=== PATIENT | female | born 1960 | race Caucasian/White ===

== ENCOUNTER 2016-06-23 18:26 | Emergency (ER) | payer MEDICAID, OTHER ==
[2016-06-23 18:36] VITALS: BP 216/94; PULSE 82; RESP 20; TEMP 98.1
--- NOTE | 2016-06-23 21:11 | ED ---
Wound/Laceration HPI - General Chief Complaint: Fall Stated Complaint: Fall Time Seen by Provider: 06/23/16 18:50 Source: patient Mode of arrival: ambulatory Limitations: no limitations - History of Present Illness Initial Comments: Patient is a 55-year-old white female presenting to the emergency department with complaints of laceration to her right knee after she fell in the [employer] parking lot. Patient denies any other injuries. Patient states her last tetanus shot was within 5 years. Location: other (Right anteriorly) Extremity Location: Right: Knee (5 cm laceration to right anterior knee) Place: outdoors Patient Tetanus UTD: Yes Context: fall (Patient states she tripped over a rock) Associated Symptoms: pain - Related Data Previous Rx's Medication Instructions Recorded Cyclobenzaprine [Flexeril] 10 mg PO TID PRN #15 tab 02/01/15 Hydrocodone/Acetaminophen [[place] 1 each PO Q6HR PRN #20 tab 02/01/15 5-325] Ibuprofen [Motrin] 600 mg PO Q8HR PRN #30 tab 02/01/15 Cephalexin [Keflex] 500 mg PO Q6HR #28 cap 06/23/16 Allergies Allergy/AdvReac Type Severity Reaction Status Date / Time No Known Allergies Allergy Verified 06/23/16 18:36 Review of Systems ROS Statement: Those systems with pertinent positive or pertinent negative responses have been documented in the HPI. ROS Other: All systems not noted in ROS Statement are negative. Past Medical History Past Medical History: Hypertension Additional Past Medical History / Comment(s): current UTI History of Any Multi-Drug Resistant Organisms: None Reported Past Surgical History: Cholecystectomy Past Anesthesia/Blood Transfusion Reactions: No Reported Reaction Additional Past Anesthesia/Blood Transfusion Reaction / Comment(s): Took her a little long to come out of her previous anesthesia Past Psychological History: No Psychological Hx Reported Smoking Status: Current every day smoker Past Alcohol Use History: None Reported Past Drug Use History: None Reported General Exam - General Exam Comments Initial Comments: GENERAL: Pt awake and alert, well-appearing, well-nourished, and in no acute distress. HEAD: Atraumatic, normocephalic. EYES: Pupils equal, round, and reactive to light, extraocular movements intact, sclera anicteric, conjunctiva are normal. ENT: Oropharynx clear without exudates. Moist mucous membranes. NECK:Normal range of motion, supple without lymphadenopathy or JVD. LUNGS: Breath sounds clear to auscultation bilaterally. No wheezes, rales, or rhonchi. HEART: Heart S1, S2, no S3 or S4. Regular rate and rhythm. No murmurs, rubs or gallops. ABDOMEN: Soft, nontender, nondistended, normoactive bowel sounds. No guarding, no rebound. No masses or organomegaly appreciated. EXTREMITIES: Palpable peripheral pulses. No edema. No calf tenderness. NEUROLOGICAL: Pt oriented x 3. Cranial nerves II through XII grossly intact. Strength and sensation grossly intact. PSYCH: Normal mood, normal affect. SKIN: Warm, dry. 5 cm irregular laceration to right knee. Limitations: no limitations Course Vital Signs 06/23/16 18:34 Temperature 98.1 F Pulse Rate 82 Respiratory 20 Rate Blood Pressure 216/94 O2 Sat by Pulse 99 Oximetry Procedures - Laceration Laceration #1 Consent Obtained: verbal consent Time Out Performed: No Indication: laceration Site: lower extremity (Right knee) Description: irregular, contaminated Depth: simple, single layer Anesthetic Used: lidocaine 1% Anesthesia Technique: local infiltration Pre-repair: wound explored, irrigated extensively, deep structures intact, wound margins revised Type of Sutures: nylon Size of Sutures: 5-0 Number of Sutures: 9 Technique: simple, interrupted Patient Tolerated Procedure: well, no complications Medical Decision Making - Medical Decision Making Laceration to right knee. Laceration repaired. Patient tolerated procedure well. Patient offered x-ray of right knee but refused. Patient agreed with treatment plan. Discharge instructions and return parameters reviewed. Disposition Clinical Impression: Laceration of right knee without complication Disposition: HOME SELF-CARE Condition: Good Instructions: Care For Your Stitches (ED), Laceration (ED) Additional Instructions: Postop wound care: Keep wound dry and clean for 24 hours; if dressing accidentally becomes wet, chains addressing immediately. Gently clean the edges of the wound daily with a cotton swab saturated with peroxide to remove crust. Return immediately if signs of infection occur such as redness or red streaks progressing up and extremity, increasing pain, swelling, or fevers. Finish oral antibiotics as prescribed. Please return for suture removal in 8-10 days or sooner if complications. Please return to the emergency department if symptoms do not improve or get worse. Prescriptions: Cephalexin [Keflex] 500 mg PO Q6HR #28 cap Referrals: Homar,Emad, MD [Primary Care Provider] - 1-2 days Time of Disposition: 19:39
== END 2016-06-23 19:56 | disposition home or self-care (01) ==
LOC: EC 18:26
DX: S81.011A Laceration without foreign body, right knee, initial encounter (principal); F17.200 Nicotine dependence, unspecified, uncomplicated; W01.0XXA Fall on same level from slipping, tripping and stumbling without subsequent striking against object, initial encounter; Y92.22 Religious institution as the place of occurrence of the external cause
CPT/HCPCS: 12002; 99283

== ENCOUNTER → 2017-05-26 | Outpatient (CLI) | payer BC ==
--- NOTE | 2017-05-26 08:45 | CT ---
EXAMINATION TYPE: CT abdomen pelvis w con DATE OF EXAM: 05/26/2017 COMPARISON: NONE INDICATION: pt c/o back pain DLP: 1940.1 mGycm, Automated exposure control for dose reduction was used. CONTRAST: 100 mL of Omnipaque 300. Study performed without Oral Contrast TECHNIQUE: Axial images were obtained from above the diaphragm to the pubic rami in the axial plane a t 5 mm thick sections. Reconstructed images are reviewed on the computer in the coronal plane. FINDINGS: Limited CT sections are obtained the lung bases. The lung bases are clear. CT ABDOMEN: Liver: Normal Spleen: Normal Pancreas: Normal Adrenal glands: The adrenal glands are normal. Gallbladder: Surgically absent Kidneys: No masses are evident. No hydronephrosis is present. No cysts are present. Delayed images were obtained through the kidneys, which remain unremarkable. There appears to be a retrocaval right renal artery. Aorta: Vascular calcification is within the aorta. There is some fusiform prominence of the mid abdo jessa aorta with an AP diameter of 2.9 cm. No obvious dissection is evident. Inferior vena cava: Normal. CT PELVIS: Loops of bowel within the abdomen and pelvis are normal. There are loops of bowel which are incom pletely distended or lack oral contrast limiting their evaluation. Appendix: Normal as visualized. Urinary bladder: Normal. Genitourinary structures: Uterus is normal. Adnexal regions appear within normal limits. Osseous structures: No suspicious lytic or sclerotic lesions. Mild facet degenerative changes present . IMPRESSIONS: 1. Minimal fusiform prominence mid abdominal aorta with an AP diameter of 2.[address] abdomen pelvis otherwise appears unremarkable.
== END | disposition home or self-care (01) ==
LOC: RADCTMAIN 06:16
PROVIDERS: ATTEND Internal Medicine Geriatric Medicine
DX: I71.4 Abdominal aortic aneurysm, without rupture (principal)
CPT/HCPCS: 74177; Q9967

== ENCOUNTER → 2022-09-16 | Outpatient (CLI) | payer OTHER ==
--- NOTE | 2022-09-16 11:15 | US ---
EXAMINATION TYPE: US carotid duplex BILAT DATE OF EXAM: 09/16/2022 COMPARISON: NONE CLINICAL INDICATION: Female, 61 years old with history of I65.23 OCCLUSION AND STENOSIS OF BILATERAL CAROTID; Stenosis TECHNIQUE: Carotid duplex ultrasound examination. Indirect Doppler criteria was utilized. FINDINGS: EXAM MEASUREMENTS: RIGHT: Peak Systolic Velocity (PSV) cm/sec ----- Right CCA: 57.2 ----- Right ICA: 105.6 ----- Right ECA: 128.6 ICA/CCA ratio: 1.8 RIGHT: End Diastole cm/sec ----- Right CCA: 14.5 ----- Right ICA: 35.7 ----- Right ECA: 12.3 LEFT: Peak Systolic Velocity (PSV) cm/sec ----- Left CCA: 72.1 ----- Left ICA: 102.9 ----- Left ECA: 99.1 ICA/CCA ratio: 1.4 LEFT: End Diastole cm/sec ----- Left CCA: 20.6 ----- Left ICA: 29.2 ----- Left ECA: 12.4 VERTEBRALS (direction of flow): Right Vertebral: Antegrade Left Vertebral: Antegrade Rhythm: Normal INTERMEDIATE MANAGER NOTES: No significant stenosis seen IMPRESSION: Less than less than 50% stenosis of the bilateral carotid bifurcations. Criteria for Assigning % of Stenosis / Diameter reduction (Estimation based on the indirect measurements of the internal carotid artery velocities (ICA PSV). 1. Normal (no stenosis)=ICA PSV < 125 cm/s: ratio < 2.0: ICA EDV<40 cm/s. 2. Less than 50% stenosis=ICA PSV < 125 cm/s: ratio < 2.0: ICA EDV<40 cm/s. 3. 50 to 69% stenosis=ICA PSV of 125 to 230 cm/s: ration 2.0 ? 4.0: ICA EDV 40-100 cm/s. 4. Greater than 70% stenosis to near occlusion= ICA PSV > 230 cm/s: ratio > 4.0: ICA EDV > 100 cm/s. 5. Near occlusion= ICA PSV velocities may be low or undetectable: variable ratio and ICA EDV. 6. Total occlusion=unable to detect flow.
--- NOTE | 2022-09-16 11:29 | XR ---
EXAMINATION TYPE: XR lumbar spine 2 or 3V DATE OF EXAM: 09/16/2022 CLINICAL HISTORY: pain TECHNIQUE: Three views of the lumbar spine are submitted. COMPARISON: None. FINDINGS: There are 5 lumbar type vertebral bodies identified. The lumbar spine shows satisfactory alignment w ithout evidence of acute fracture or dislocation. Vertebral body heights are within normal limits. [id number] multilevel degenerative disc space narrowing greatest at L4-5 and L5-S1. Abdominal a ortic aneurysm with AP measurement of approximately 3.7 cm. IMPRESSION: 1.Abdominal aortic aneurysm with AP measurement of approximately 3.7 cm. 2. No acute fracture or dislocation is seen in the lumbar spine. ICD 10 NO FRACTURE, INITIAL EVALUATION
== END | disposition home or self-care (01) ==
LOC: RADUSWWP 10:34
PROVIDERS: ATTEND Internal Medicine
DX: I65.23 Occlusion and stenosis of bilateral carotid arteries (principal); M47.817 Spondylosis without myelopathy or radiculopathy, lumbosacral region; I71.40 Abdominal aortic aneurysm, without rupture, unspecified
CPT/HCPCS: 72100; 93880

== ENCOUNTER → 2022-10-28 | Outpatient (CLI) | payer OTHER ==
--- NOTE | 2022-10-29 10:15 | BD ---
EXAMINATION TYPE: Axial Bone Density DATE OF EXAM: 10/28/2022 CLINICAL HISTORY: 61 years old Female. ICD-10 CODE: [id number] OSTEO RIGHT HIP Height: 65 Weight: 310.8 FRAX RISK QUESTIONS: Alcohol (3 or more units per day): no Family History (Parent hip fracture): no Glucocorticoids (More than 3mos): no History of Fracture in Adulthood: no Secondary Osteoporosis: 1. Type 1 Diabetes: no 2. Hyperthyroidism: no 3. Menopause before 45: no 4. Malnutrition: no 5. Chronic liver disease: no Rheumatoid Arthritis: no Current Tobacco Use: no RISK FACTORS HISTORY OF: Hip Fracture (Right/Left): no Spine Fracture: no History of Wrist Fracture: no Surgery to Spine/Hip(right/left)/Wrist (right/left): no Family History of Osteoporosis: no Active: no Diet low in dairy products/other sources of calcium: no Postmenopausal woman: yes Take estrogen and/or progesterone medications: no Lost more than 2 inches in height since high school: no Frequent falls: no Poor Health: yes Hyperparathyroidism: no Adrenal Insufficiency: no MEDICATIONS: Prednisone or other steroids: no Thyroid Medications: no Osteoporosis Medications:no Additional Medications: Bp Meds, Cholesterol Meds, Multi Vit. Additional History: EXAM MEASUREMENTS: Bone mineral densitometry was performed using the Skycure System. Bone mineral density as measured about the Lumbar spine is: ----- L1-L4(G/cm2): 1.392 T Score Values are as follows: ----- L1: 0.0 ----- L2: 1.7 ----- L3: 1.8 ----- L4: 3.3 ----- L1-L4: 1.8 Z Score Values are as follows: ----- L1: 0.1 ----- L2: 1.8 ----- L3: 2.0 ----- L4: 3.5 ----- L1-L4: 1.9 Bone mineral density has: decreased -8.2 % since study of: 10/05/2013 Bone mineral density about the R hip (g/cm2): 1.161 Bone mineral density about the L hip (g/cm2): 1.191 T Score values are as follows: -----R Neck: 0.4 -----L Neck: 0.6 -----R Total: 1.2 -----L Total: 1.5 Z Score values are as follows: -----R Neck: 1.0 -----L Neck: 1.1 -----R Total: 1.4 -----L Total: 1.6 Bone mineral density has: decreased -1.8 % since study of: 10/05/2013 FRAX%s: The graph provided illustrates a 4.9% chance for a major osteoporotic fx and a 0.1% chance fo r the hips probability for fx in 10 years time. IMPRESSION: Normal (Values between +1 and -1 indicate normal bone mass). Consider repeating this study in 5 year s or sooner if there is some new clinical indication. NOTE: T-SCORE=SD OF THE YOUNG ADULT MEAN.
--- NOTE | 2022-10-30 07:19 | CT ---
EXAMINATION TYPE: CT angio thor/abd DATE OF EXAM: 10/28/2022 COMPARISON: None HISTORY: Abdominal aortic aneurysm CT DLP: 2836.4 mGycm Automated exposure control for dose reduction was used. Contrast: 100 mL Isovue-370 Technique: Axial images 5 mm thick sections. Reconstructed images in the coronal plane. 3-D reconstru cted images performed on a separate computer by the technologist are reviewed. FINDINGS: CT chest: There is a 0.3 cm nodule in the right apex. Short-term follow-up is recommended. Portion of the thyroid visualized is normal. Tracheobronchial tree as visualized is normal. No enlarg ed mediastinal or hilar lymph nodes are evident. Ascending thoracic aorta at the main pulmonary artery is 3.6 cm. Main pulmonary artery at the bifurca tion is 3.4 cm. Aorta appears to taper through its visualized course. CT ABDOMEN: There is moderate fatty infiltration through the liver. Gallbladder is surgically absent. Loops of bowel without oral contrast appear normal. The appendix is unremarkable. Kidneys appear nor mal without masses cysts or hydronephrosis. No renal stones are evident Pancreas is normal. Spleen is unremarkable. Adrenal glands are normal. Inferior vena cava is normal. Aorta: Vascular calcification is within the aorta. Thoracic aorta appears unremarkable. No dissection s are evident. There is mild diffuse fusiform prominence of the abdominal aorta with an AP dimension of 3.1 cm. This terminates at the bifurcation. The renal artery origins has some calcification withou t obvious stenosis. Superior mesenteric artery and celiac axis are normal. IMPRESSION: 1. MINIMAL FUSIFORM PROMINENCE OF THE MID ABDOMINAL AORTA WITH THE GREATEST AP DIMENSION OF 3.1 CM. 2. MODERATE FATTY INFILTRATION OF LIVER. 3. SMALL NODULE RIGHT APEX, FOLLOW-UP CT CHEST IN 6 MONTHS IS RECOMMENDED.
--- NOTE | 2022-11-05 12:24 | MM ---
Reason for Exam: Screening (asymptomatic). Last mammogram was performed 9 year(s) and 0 month(s) ago. Patient History: Menarche at age 12. Patient has no children. Postmenopausal. Risk Values: Katlin 5 year model risk: 1.6%. NCI Lifetime model risk: 7.9%. Prior Study Comparison: 10/05/2013 Bilateral Screening Mammogram, [facility]. Tissue Density: The breast tissue is almost entirely fat. Findings: Analyzed By CAD. There is no suspicious group of microcalcifications or new suspicious mass in either breast. Overall Assessment: Negative, BI-RAD 1 Management: Screening Mammogram of both breasts in [address] [facility] will attempt to contact patient to return for supplemental views and ultrasound if indicated. Patient should continue monthly self-breast exams. A clinical breast exam by your physician is recommended on an annual basis. This exam should not preclude additional follow-up of suspicious palpable abnormalities. Note on Katlin scores and lifetime risk: 1. A Katlin score greater than 3% is considered moderate risk. If this is the case, consider specialist referral to assess eligibility for a risk reducing agent. 2. If overall lifetime risk for the development of breast cancer is 20% or higher, the patient may qualify for future screening with alternating mammogram and breast MRI. Electronically signed and approved by: Sanchez Borja DO
== END | disposition home or self-care (01) ==
LOC: RADMAMWWP 07:57
PROVIDERS: ATTEND Internal Medicine
DX: Z12.31 Encounter for screening mammogram for malignant neoplasm of breast (principal); I71.40 Abdominal aortic aneurysm, without rupture, unspecified; M85.851 Other specified disorders of bone density and structure, right thigh; K76.0 Fatty (change of) liver, not elsewhere classified; R91.1 Solitary pulmonary nodule; Z78.0 Asymptomatic menopausal state
CPT/HCPCS: 77080; 77067; 71275; 74175; Q9967

== ENCOUNTER 2024-09-20 10:05 | Emergency (ER) | payer OTHER ==
--- NOTE | 2024-09-20 10:44 | ED ---
General Adult HPI - General Stated complaint: back pain Time Seen by Provider: 09/20/24 10:20 Source: patient, RN notes reviewed - History of Present Illness Initial comments: 63-year-old female presenting to emergency department for complaints of left lower back pain with radiation to her hip over the past 6 days that is progressing. Patient denies enticing injury or fall states that she woke up with the pain 1 day. She denies radiation of pain. States that the pain is significantly worse with movement. She denies loss of bladder or bowel control or saddle anesthesias. Denies hematuria, dysuria, increased urinary frequency or urgency. Denies fevers or chills. Has been taking Tylenol at home with minimal relief. - Related Data Previous Rx's Medication Instructions Recorded Cyclobenzaprine [Flexeril] 10 mg PO TID PRN #15 tab 02/01/15 Hydrocodone/Acetaminophen [[place] 1 each PO Q6HR PRN #20 tab 02/01/15 5-325] Ibuprofen [Motrin] 600 mg PO Q8HR PRN #30 tab 02/01/15 Cephalexin [Keflex] 500 mg PO Q6HR #28 cap 06/23/16 Penicillin V Potassium [Pen Vee K] 500 mg PO QID 10 Days #40 tablet 08/05/20 Indomethacin [Indocin] 50 mg PO TID #21 capsule 01/10/22 Cyclobenzaprine [Flexeril] 10 mg PO TID PRN #15 tab 09/20/24 Ibuprofen [Motrin] 800 mg PO Q8HR PRN #30 tab 09/20/24 Allergies Allergy/AdvReac Type Severity Reaction Status Date / Time No Known Allergies Allergy Verified 09/20/24 10:49 Review of Systems ROS Statement: Those systems with pertinent positive or pertinent negative responses have been documented in the HPI. ROS Other: All systems not noted in ROS Statement are negative. Past Medical History Past Medical History: Hypertension, No Reported History Additional Past Medical History / Comment(s): current UTI History of Any Multi-Drug Resistant Organisms: None Reported Past Surgical History: Cholecystectomy, No Surgical Hx Reported Past Anesthesia/Blood Transfusion Reactions: No Reported Reaction Additional Past Anesthesia/Blood Transfusion Reaction / Comment(s): Took her a little long to come out of her previous anesthesia Past Psychological History: No Psychological Hx Reported Smoking Status: Former smoker Past Alcohol Use History: None Reported Past Drug Use History: None Reported General Exam General appearance: alert, in no apparent distress Respiratory exam: Present: normal lung sounds bilaterally. Absent: respiratory distress, wheezes, rales, rhonchi, stridor Cardiovascular Exam: Present: regular rate, normal rhythm, normal heart sounds. Absent: systolic murmur, diastolic murmur, rubs, gallop, clicks GI/Abdominal exam: Present: soft, normal bowel sounds. Absent: distended, tenderness, guarding, rebound, rigid Left Hip exam: Present: full ROM, tenderness. Absent: swelling, ecchymosis, deformity Back exam: Present: full ROM, tenderness. Absent: CVA tenderness (R), CVA tenderness (L) Course Vital Signs 09/20/24 09/20/24 10:42 12:23 Temperature 97.9 F 98.0 F Pulse Rate 65 65 Respiratory 20 20 Rate Blood Pressure 199/87 180/89 O2 Sat by Pulse 96 96 Oximetry Medical Decision Making - Medical Decision Making Was pt. sent in by a medical professional or institution (GANESH Faust, GLASSINE MACHINE TENDER, urgent care, hospital, or senior living...) When possible be specific @ -No Did you speak to anyone other than the patient for history (EMS, parent, family, police, friend...)? What history was obtained from this source @ -No Did you review nursing and triage notes (agree or disagree)? Why? @ -I reviewed and agree with nursing and triage notes Were old charts reviewed (outside hosp., previous admission, EMS record, old EKG, old radiological studies, urgent care reports/EKG's, senior living records)? Report findings @ -No old charts were reviewed Differential Diagnosis (chest pain, altered mental status, abdominal pain women, abdominal pain men, vaginal bleeding, weakness, fever, dyspnea, syncope, headache, dizziness, GI bleed, back pain, seizure, CVA, palpatations, mental health, musculoskeletal)? @ -Differential Back Pain: Strain, zoster, cauda equina syndrome, epidural abscess, vertebral osteomyelitis, discitis, fracture, subluxation, disc herniation, DJD, spinal stenosis, dissection, AAA, pancreatitis, peptic ulcer disease, pyelonephritis, kidney stone, this is not meant to be an all-inclusive list. EKG interpreted by me (3pts min.). @ -None X-rays interpreted by me (1pt min.). @ - X-ray of the lumbar spine reveals a mild to moderate degenerative disc disease X-ray of the left hip and AP pelvis reveals mild osteoarthritis with no acute abnormality. CT interpreted by me (1pt min.). @ -None done U/S interpreted by me (1pt. min.). @ -None done What testing was considered but not performed or refused? (CT, X-rays, U/S, labs)? Why? @ -None What meds were considered but not given or refused? Why? @ -None Did you discuss the management of the patient with other professionals (professionals i.e. Dr., PA, GLASSINE MACHINE TENDER, lab, RT, psych nurse, social work specialist, take away attendant, teacher, commissioned security officer, manager rn case)? Give summary @ -No Was smoking cessation discussed for >3mins.? @ -No Was critical care preformed (if so, how long)? @ -No Were there social determinants of health that impacted care today? How? (Homelessness, low income, unemployed, alcoholism, drug addiction, transportation, low edu. Level, literacy, decrease access to med. care, care home, rehab)? @ -No Was there de-escalation of care discussed even if they declined (Discuss DNR or withdrawal of care, Hospice)? DNR status @ -No What co-morbidities impacted this encounter? (DM, HTN, Smoking, COPD, CAD, Cancer, CVA, ARF, Chemo, Hep., AIDS, mental health diagnosis, sleep apnea, morbid obesity)? @ -None Was patient admitted / discharged? Hospital course, mention meds given and route, prescriptions, significant lab abnormalities, going to OR and other pertinent info. @ -Discharge. 63 female presenting with nontraumatic back and hip pain. Overall patient is well-appearing in no signs distress. There are no overlying skin changes on examination. Patient's pain is reproducible on palpation and with range of motion likely musculoskeletal in nature. She is provided with Toradol and Lidoderm patch for pain relief. X-ray imaging of the left hip, AP pelvis, and lumbar spine no acute process. She is provided with outpatient prescription for Motrin 800s and muscle laxer instructed follow-up with primary care provider. Case discussed with attending Dr. Lomas Undiagnosed new problem with uncertain prognosis? @ -No Drug Therapy requiring intensive monitoring for toxicity (Heparin, Nitro, Insulin, Cardizem)? @ -No Were any procedures done? @ -No Diagnosis/symptom? @ -Lumbar back pain Acute, or Chronic, or Acute on Chronic? @ -Acute Uncomplicated (without systemic symptoms) or Complicated (systemic symptoms)? @ -Uncomplicated Side effects of treatment? @ -No Exacerbation, Progression, or Severe Exacerbation? @ -No Poses a threat to life or bodily function? How? (Chest pain, [place], HI, pneumonia, PE, COPD, DKA, ARF, appy, cholecystitis, CVA, Diverticulitis, Homicidal, Suicidal, threat to staff... and all critical care pts) @ -No - Lab Data Lab Results 09/20/24 Range/Units 11:28 Urine Color Colorless Urine Appearance Clear (Clear) Urine pH 5.0 (5.0-8.0) Ur Specific [place] 1.025 (1.001-1.035) Urine Protein Negative (Negative) Urine Glucose (UA) 4+ H (Negative) Urine Ketones Negative (Negative) Urine Blood Negative (Negative) Urine Nitrite Negative (Negative) Urine Bilirubin Negative (Negative) Urine Urobilinogen <2.0 (<2.0) mg/dL Ur Leukocyte Esterase Negative (Negative) Disposition Clinical Impression: Lumbar back pain Disposition: HOME SELF-CARE Condition: Good Instructions (If sedation given, give patient instructions): Acute Low Back Pain (ED) Additional Instructions: Please return to the Emergency Department if symptoms worsen or any other concerns. Prescriptions: Cyclobenzaprine [Flexeril] 10 mg PO TID PRN #15 tab PRN Reason: Muscle Spasm Ibuprofen [Motrin] 800 mg PO Q8HR PRN #30 tab PRN Reason: Pain Is patient prescribed a controlled substance at d/c from ED?: No Referrals: Luis M Graf MD [Primary Care Provider] - 1-2 days Time of Disposition: 12:07
[2024-09-20 10:48] VITALS: PULSE 65; RESP 20
[2024-09-20 11:47] LABS: Appearance,Urine Clear (Clear); Bilirubin,Urine Negative (Negative); Blood,Urine Negative (Negative); Color,Urine Colorless; Glucose,Urine (UA) 4+ (Negative); Ketones,Urine Negative (Negative); Leukocyte Esterase,Urine Negative (Negative); Nitrite,Urine Negative (Negative); Protein,Urine Negative (Negative); Specific Gravity,Urine 1.025 (1.001-1.035); Urobilinogen,Urine <2.0 mg/dL (<2.0)
--- NOTE | 2024-09-20 11:49 | XR ---
EXAMINATION TYPE: XR lumbar spine 3V, XR Hip 2 views LT and AP Pelvis DATE OF EXAM: 09/20/2024 11:12 AM COMPARISON: 09/16/2022 CLINICAL INDICATION: Female, 63 years old with history of pain; PHH, pain FINDINGS: Lumbar spine: Cholecystectomy clips. 5 lumbar type vertebral bodies. Moderate facet arthropathy mid to lower lumbar spine. Mild to moderate degenerative disc disease throughout. Degenerative grade 1 anterolisthesis L 3-L4 L4-L5. Grade 1 retrolisthesis L2-L3. Extensive atherosclerotic calcifications throughout the abd ominal aorta. Vertebral body heights are preserved. Pelvis and left hip: Mild degenerative joint space narrowing at both hips. Subchondral cystic change along the superolater al right acetabulum. Pubic symphysis appears intact. No acute fracture, subluxation, or dislocation s een. IMPRESSION: Lumbar spine: 1. Moderate facet arthropathy mid to lower lumbar spine. [id number] multilevel degenerative dis c disease. 2. Degenerative grade 1 spondylolistheses L2-L5 levels. 3. No vertebral compression collapse. Pelvis and left hip: 4. Mild bilateral hip OA. 5. No acute osseous abnormality seen. [facility], , 09/20/2024 11:47 AM
[2024-09-20] MEDS: KETOROLAC 15 MG/ML 1 ML VIAL IM STA (12:15)
[2024-09-20] MEDS: LIDOCAINE 4% PATCH TOPICAL ONE (12:16)
[2024-09-20 12:25] VITALS: BP 180/89; TEMP 98
== END 2024-09-20 12:23 | disposition home or self-care (01) ==
LOC: EC 10:05
DX: M54.50 Low back pain, unspecified (principal); Z87.891 Personal history of nicotine dependence
CPT/HCPCS: 81003; 72100; 73502; 99284; 96372; J1885

== ENCOUNTER 2024-09-26 18:17 | Emergency (ER) | payer OTHER ==
[2024-09-26 18:29] VITALS: RESP 18; TEMP 98
[2024-09-26] MEDS: KETOROLAC 15 MG/ML 1 ML VIAL IM STA (19:07)
[2024-09-26] MEDS: ACETAMINOPHEN TAB 500 MG TAB PO STA (19:08)
[2024-09-26] MEDS: LIDOCAINE 4% PATCH TOPICAL ONE (19:10)
--- NOTE | 2024-09-26 19:40 | ED ---
Back Pain HPI - General Chief Complaint: Back Pain/Injury Stated Complaint: Back Pain/Just here Time Seen by Provider: 09/26/24 18:35 Source: patient, RN notes reviewed Mode of arrival: ambulatory Limitations: no limitations - History of Present Illness MD Complaint: back pain Onset/Timin -: days(s) Similar Symptoms Previously: Yes Radiation: none Severity scale (1-10): 8 Worsens With: movement, walking Associated Symptoms: denies other symptoms Treatments Prior to Arrival: NSAIDS, other medications (Flexeril) - Related Data Previous Rx's Medication Instructions Recorded Cyclobenzaprine [Flexeril] 10 mg PO TID PRN #15 tab 02/01/15 Hydrocodone/Acetaminophen [[place] 1 each PO Q6HR PRN #20 tab 02/01/15 5-325] Ibuprofen [Motrin] 600 mg PO Q8HR PRN #30 tab 02/01/15 Cephalexin [Keflex] 500 mg PO Q6HR #28 cap 06/23/16 Penicillin V Potassium [Pen Vee K] 500 mg PO QID 10 Days #40 tablet 08/05/20 Indomethacin [Indocin] 50 mg PO TID #21 capsule 01/10/22 Cyclobenzaprine [Flexeril] 10 mg PO TID PRN #15 tab 09/20/24 Ibuprofen [Motrin] 800 mg PO Q8HR PRN #30 tab 09/20/24 Lidocaine 4% Patch 1 patch TOPICAL Q24H PRN #10 patch 09/26/24 Allergies Allergy/AdvReac Type Severity Reaction Status Date / Time No Known Allergies Allergy Verified 09/26/24 18:29 Review of Systems ROS Statement: Those systems with pertinent positive or pertinent negative responses have been documented in the HPI. ROS Other: All systems not noted in ROS Statement are negative. Past Medical History Past Medical History: Hypertension, No Reported History Additional Past Medical History / Comment(s): current UTI History of Any Multi-Drug Resistant Organisms: None Reported Past Surgical History: Cholecystectomy, No Surgical Hx Reported Past Anesthesia/Blood Transfusion Reactions: No Reported Reaction Additional Past Anesthesia/Blood Transfusion Reaction / Comment(s): Took her a little long to come out of her previous anesthesia Past Psychological History: No Psychological Hx Reported Smoking Status: Former smoker Past Alcohol Use History: None Reported Past Drug Use History: None Reported General Exam Limitations: no limitations Course Vital Signs 09/26/24 18:26 Temperature 98.0 F Pulse Rate 68 Respiratory 18 Rate Blood Pressure 173/104 O2 Sat by Pulse 97 Oximetry Medical Decision Making - Medical Decision Making Was pt. sent in by a medical professional or institution (GANESH Faust, [employer], urgent care, hospital, or detention...) When possible be specific @ -[No] Did you speak to anyone other than the patient for history (EMS, parent, family, police, friend...)? What history was obtained from this source @ -[No] Did you review nursing and triage notes (agree or disagree)? Why? @ -[I reviewed and agree with nursing and triage notes] Were old charts reviewed (outside hosp., previous admission, EMS record, old EKG, old radiological studies, urgent care reports/EKG's, detention records)? Report findings @ -[No old charts were reviewed] Differential Diagnosis (chest pain, altered mental status, abdominal pain women, abdominal pain men, vaginal bleeding, weakness, fever, dyspnea, syncope, headache, dizziness, GI bleed, back pain, seizure, CVA, palpatations, mental health, musculoskeletal)? @ -Differential Back Pain: Strain, zoster, cauda equina syndrome, epidural abscess, vertebral osteomyelitis, discitis, fracture, subluxation, disc herniation, DJD, spinal stenosis, dissection, AAA, pancreatitis, peptic ulcer disease, pyelonephritis, kidney stone, this is not meant to be an all-inclusive list. EKG interpreted by me (3pts min.). @ -Not done X-rays interpreted by me (1pt min.). @ -[None done] CT interpreted by me (1pt min.). @ -[None done] U/S interpreted by me (1pt. min.). @ -[None done] What testing was considered but not performed or refused? (CT, X-rays, U/S, labs)? Why? @ -[None] What meds were considered but not given or refused? Why? @ -[None] Did you discuss the management of the patient with other professionals (pro fessionals i.e. GANESH Faust, [employer], lab, RT, psych nurse, administrator social welfare, merit system director, teacher, bsa officer, welfare case worker)? Give summary @ -[No] Was smoking cessation discussed for >3mins.? @ -[No] Was critical care preformed (if so, how long)? @ -[No] Were there social determinants of health that impacted care today? How? (Homelessness, low income, unemployed, alcoholism, drug addiction, transportation, low edu. Level, literacy, decrease access to med. care, long-term, rehab)? @ -[No] Was there de-escalation of care discussed even if they declined (Discuss DNR or withdrawal of care, Hospice)? DNR status @ -[No] What co-morbidities impacted this encounter? (DM, HTN, Smoking, COPD, CAD, Cancer, CVA, ARF, Chemo, Hep., AIDS, mental health diagnosis, sleep apnea, morbid obesity)? @ -[None] Was patient admitted / discharged? Hospital course, mention meds given and route, prescriptions, significant lab abnormalities, going to OR and other pertinent info. @ -[hospital course] Undiagnosed new problem with uncertain prognosis? @ -[No] Drug Therapy requiring intensive monitoring for toxicity (Heparin, Nitro, Insulin, Cardizem)? @ -[No] Were any procedures done? @ -[No] Diagnosis/symptom? @ -Mechanical back pain Acute, or Chronic, or Acute on Chronic? @ -Acute Uncomplicated (without systemic symptoms) or Complicated (systemic symptoms)? @ -Uncomplicated Side effects of treatment? @ -[No] Exacerbation, Progression, or Severe Exacerbation? @ -[No] Poses a threat to life or bodily function? How? (Chest pain, [place], [place], pneumonia, PE, COPD, DKA, ARF, appy, cholecystitis, CVA, Diverticulitis, Homicidal, S uicidal, threat to staff... and all critical care pts) @ -[No] Disposition Clinical Impression: Lumbar back pain Disposition: HOME SELF-CARE Condition: Fair Instructions (If sedation given, give patient instructions): Acute Low Back Pain (ED) Additional Instructions: Apply warm compress to affected area for 10 minutes up to 4 times daily. Gentle/and stretching also recommended. Follow-up with primary care/orthopedics for any ongoing back pain. Prescriptions: Lidocaine 4% Patch 1 patch TOPICAL Q24H PRN #10 patch PRN Reason: Pain Is patient prescribed a controlled substance at d/c from ED?: No Referrals: Luis M Graf MD [Primary Care Provider] - 1-2 days [facility] [Provider Group] - 1-2 days Time of Disposition: 19:40
[2024-09-26 19:49] VITALS: PULSE 64
[2024-09-26] MEDS: HYDROcodone/APAP 5-325MG 1 EACH TAB PO STA (19:54)
[2024-09-26] MEDS: LABETALOL 200 MG TAB PO STA (19:54)
[2024-09-26] MEDS: ACET/COD 300 MG/30 MG STARTER PACK 6 TAB BTL PO STA (19:55)
[2024-09-26 20:24] VITALS: BP 177/91
== END 2024-09-26 20:24 | disposition home or self-care (01) ==
LOC: EC 18:17
DX: M54.50 Low back pain, unspecified (principal); Z87.891 Personal history of nicotine dependence
CPT/HCPCS: 99283; 96372; J1885